=== PATIENT | male | born 1960 | race Caucasian/White ===

== ENCOUNTER 2023-03-19 12:15 | Emergency (ER) | payer OTHER ==
--- NOTE | 2023-03-19 12:44 | XRAY Report ---
PROCEDURE: Foot 3 View LT INDICATIONS: Trauma TECHNIQUE: 3 views of the foot were acquired. COMPARISON: None. FINDINGS: Bones: Diffuse osteopenia. No definite fracture identified. Normal alignment. Plantar calcaneal spur . Degenerative changes of the left foot and ankle. Soft tissues: No suspicious soft tissue calcifications or masses. Mild dorsal soft tissue swelling . IMPRESSION: Mild dorsal left foot soft tissue swelling. No definite fracture identified. Normal alignment. Diffus e osteopenia. Small plantar calcaneal enthesophyte. If there is persistent clinical concern for a radiographically occult fracture, recommend immobilizat ion and repeat imaging in 10 to 14 days. Reviewed by: Aadrsh Mcmanus MD on 03/19/2023 11:43 AM NICHOLAS Approved by: Adarsh Mcmanus MD on 03/19/2023 11:43 AM NICHOLAS Station ID: [id number]
--- NOTE | 2023-03-19 13:17 | ED Physician Documentation ---
PD HPI LOWER EXT INJURY - Stated complaint Stated Complaint: LT FOOT INJURY - Chief complaint Chief Complaint: Trauma Ext - History obtained from History obtained from: Patient - History of Present Illness PD HPI LOW EXT INJURY LOCATION: Left, Foot Type of injury: Blunt / blow Where injury occurred: Home Timing - onset: Today Timing - duration: Hours Timing - details: Abrupt onset, Still present Improved by: Rest, Ice, Immobilization Worsened by: Moving, Palpating Associated symptoms: Numbness (has peripheral neuropathy), Swelling. No: Weakness, Tingling Similar symptoms before: Has not had sx before Recently seen: Not recently seen - Additional information Additional information: 62-year-old male walking when he struck the dorsum of the left foot on a rock. He went about his business for some time feeling the pain and the pain became worse and worse. He is now able to only ambulate with crutches. He did this earlier this morning Review of Systems Constitutional: denies: Fever Nose: denies: Congestion Throat: denies: Sore throat Respiratory: denies: Cough GI: denies: Vomiting, Diarrhea PD PAST MEDICAL HISTORY - Present Medications Home Medications: Ambulatory Orders Medication Instructions Recorded Confirmed HYDROcod/ACETAM 5/325 [[place] 5/325] 1 - 2 tablet PO Q6H PRN #14 tablet 03/19/23 - Allergies Allergies/Adverse Reactions: Allergies Allergy/AdvReac Type Severity Reaction Status Date / Time No Known Drug Allergies Allergy Verified 03/19/23 12:25 PD ED PE NORMAL - Vitals Vital signs reviewed: Yes (hypertensive) - General General: Alert and oriented X 3, No acute distress, Well developed/nourished - HEENT HEENT: Atraumatic, PERRL, EOMI - Respiratory Respiratory: No respiratory distress - Derm Derm: Normal color, Warm and dry, No rash - Extremities Extremities: No deformity, Other (point tenderness to the dorsum of the left foot without crepitance or deformity. distal n/v intact. 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 No definite fracture identified. Normal alignment. Diffuse osteopenia. Small plantar calcaneal enthesophyte.), EMP independent interpretation of test PD Medical Decision Making - ED course Complexity details: reviewed results, re-evaluated patient, considered differential, d/w patient ED course: 62-year-old male with a contusion to the left foot has significant pain to the dorsum of the foot. He has a history of a peripheral neuropathy and he has come to the emergency department with increasing pain with ambulation after contusion. He was concerned about the possibility of a fracture. We did not find a fracture on x-ray examination of the foot. The patient is interested in pain management and we have provided a prescription for some pain medication for the patient. Departure - Departure Disposition: 01 Home, Self Care Clinical Impression: Contusion of left foot Qualifiers: Encounter type: initial encounter Qualified Code(s): S90.32XA - Contusion of left foot, initial encounter Condition: Stable Instructions: ED Sprain Foot Follow-Up: [facility] [Provider Group] Prescriptions: HYDROcod/ACETAM 5/325 [[place] 5/325] 1 - 2 tablet PO Q6H PRN #14 tablet PRN Reason: Pain Comments: Millerdavid today looks like you have contused your foot and there is no evidence of a fracture. Use the crutches as needed for ambulation and I have E scribed some pain medication to the [facility] in [place]. Expectation with treatment is resolution of symptoms within 10 to 14 days. Discharge Date/Time: 03/19/23 13:49
[2023-03-19 13:52] VITALS: BP 130/88
== END 2023-03-19 13:49 | disposition home or self-care (01) ==
LOC: ED 12:15
DX: S90.32XA Contusion of left foot, initial encounter (principal); W22.8XXA Striking against or struck by other objects, initial encounter; Y93.01 Activity, walking, marching and hiking
CPT/HCPCS: 99283; 99284

== ENCOUNTER 2023-11-23 13:36 | Outpatient (CLI) | payer OTHER ==
--- NOTE | 2023-11-23 14:46 | Sleep Patient Instructions ---
Sleep Center Visit Summary - Patient Visit Information Reason for Visit: Initial consultation - Patient Instructions Additional Instructions: You will continue with BiPAP therapy with pressure set at 18/10 cmH2O. A supply prescription will be updated with your DME. I have added an order for a new BIPAP, please call once you get your new machine to make appointment for compliance follow up. We encourage you to continue to try to lose weight. Please follow up with the sleep care office one month after obtaining new machine. - Clinic Information Contact: [facility] [address] [place] [address] [email or web address] T: [phone]
--- NOTE | 2023-11-23 14:51 | SLEEP CARE CONSULTATION ---
Information from patient questionnaire entered by Milagros Douglas. I have reviewed and concur with the information entered by Milagros Douglas. This document represents the service I personally performed and the decisions made by me, Trang Jeronimo ARNP. History of Present Illness Service Date and Time: 11/23/2023 1336 Reason for Visit: New patient, Previously diagnosed sleep apnea, sleep apnea on CPAP therapy Chief Complaint: reports: Other (NEW BIPAP THIS ONE IS OVER 5YRS OLD) Date of Onset: 10YRS Usual bedtime: 8PM-12AM Time it takes to fall asleep: 15-30MINS Snores at night: Yes Observed to quit breathing while asleep: Yes Sleeps alone due to snoring: No Number of times waking at night: 1 Reasons for waking at night: reports: Bathroom Toss, Turn, or Twitch while sleeping: No Recalls having dreams: Yes Usually gets out of bed at: 4-8 Feels refreshed in the morning: Yes Morning headache: No Sleepy or fatigued during the day: No Ever fallen asleep while driving: No Takes day naps: No Dreams during day naps: No Prior sleep studies: Yes Additional HPI information: ASHLI LOWERY was diagnosed to have severe, AHI 54.2 obstructive sleep apnea-hypopnea syndrome as seen in sleep study dated 10/16/2010 through [facility] and comes in today to establish care for BIPAP therapy. - Parasomnia Symptoms Ever been unable to move upon waking from sleep: No Walks in sleep: No Talks in sleep: Yes Ever felt weak in the knees when startled or emotional: No Bothered by creepy, crawly, restless sensations in legs: No Problems with memory or concentration: No CPAP Compliance Data - Data Reviewed with Patient Average duration of nightly device use: 7 hours 50 minutes Compliance rate %: 100 (90/90 days used) Current pressure setting (cmH2O): 18/10 with 2 pressure support Average residual AHI: 1.1 Central apnea: 0.2 Obstructive apnea: 0.5 Hypopnea: 0.3 Average large leak: 0 L/MIN Compliance data discussion: He has a ResMed Aircurve 10 last updated in 08/2016. He gets his supplies from [employer]. He uses a full face mask, ResMed Mirage Quattro, medium cushion. Subjective Patient concerns: reports: dry mouth, nose, throat (dry mouth, most mornings). denies: aerophagia, mask discomfort, air blowing in eyes, mask leak noise, condensation in mask/hose, nasal congestion, epistaxis Observed to snore while using device: No Current pressure setting perceived as: comfortable On therapy, patient: reports: sleeping better, awakening more refreshed, being more awake and alert during the day, more rested overall. denies: drowsiness while driving Initial [place] Sleepiness Scale score: 5 (10/25/23) Past Medical History Past Medical History: reports: Hypertension, Other (high cholesterol) Social History The patient's occupation is a [employer]. Patient is and lives in [place]. Have you smoked in the past 12 months: Yes Cigarettes per day (20/pack): 20 Years of smokin Smoking Pack Years: 12.0 Alcohol use: Yes Alcohol amount and frequency: 6 PACK BEER EVERY 6MONTHS Caffeine use: Yes Caffeine amount and frequency: 2 CUPS COFFEE QD Family History Family history of sleep disordered breathing: No Allergies and Home Medications Known drug allergies: No Drug allergies reviewed: Yes Home medication list reviewed: Yes Allergy and home medication list: Allergies No Known Drug Allergies Allergy (Verified 11/21/23 11:08) Medications: Atorvastatin 40 mg daily Aspirin 81 mg daily Micardis HCT 80 mg/12.5 mg daily Review of Systems Weight loss over past 5 years: 25 Cardiovascular: reports: high blood pressure Gastrointestinal: denies: heartburn Neurological: denies: headaches Psychiatric: denies: anxiety, depression Ear/Nose/Throat: reports: tonsillectomy, wisdom teeth removed Musculoskeletal: reports: joint pain, muscle pain or cramping Physical Exam Vital signs obtained and entered by: MILAGROS Haley MA Blood Pressure: 148/83 (LEFT ARM) Cuff size: long Heart Rate: 75 O2 Saturation: 97 Height: 5 ft 11 in Weight: 271 lb (clothed with jacket, shoes) Body Mass Index: 37.8 BMI Classification: Obese Neck circumference: 19 Heart: regular rate and rhythm Lungs: clear bilaterally Impression and Plan 1. Obstructive Sleep Apnea-Hypopnea Syndrome, moderate, with good treatment compliance and good apnea control. On BIPAP therapy, the patient has better sleep quality and is more rested overall. Patient has significant improvement of their sleep apnea and is satisfied with current CPAP therapy. He has been getting more dry throat in the last 6 months. His machine was last updated in 2016 and he is eligible for new BiPAP. The patients BiPAP is over 5 years old and of reasonable use. Thus, the CPAP will be updated. In addition, it is giving him an error message that the motor has exceeded its life. The new CPAPs also have a better humidity system which could assist control of patients dryness symptoms. A DWO prescription will be made. Compliance guidelines for new device and follow up discussed.Patient's apnea severity and rationale for treatment to reduce apnea, improve sleep quality and reduce cardiovascular and cerebrovascular events was reviewed. I also reviewed the benefit of consistent device use of BIPAP for hypertension. 2. Obesity, unspecified. Currently patients BMI is 37.8. He says he has lost about 25 pounds with cutting back on his carbs. Obesity increases the risk of apnea, BiPAP pressure requirements and overall health risks especially cardiovascular and diabetes. Thus patient is advised to continue to try to lose weight. * Continue BIPAP pressure at 18/10 cmH2O with 2 cmH2O pressure support * Update machine * Update supplies * Notify me if snoring with mask or feeling that the pressure is too much or too little * Attempt to lose weight * Call this office if any problems using BiPAP * Return for follow up one month after obtaining new device, or sooner if concerns arise Counseling Topics: Weight loss health impact Prescriptions: BiPAP, Device supplies Follow up with Sleep Care in: other (compliance follow up) Visit Type: In Office Time Spent with Patient (minutes): 30 Provider Statement: I spent 100% of the Face to Face Visit with the patient with greater than 50% spent counseling the patient and coordination of care.
[2023-11-23 15:07] VITALS: BP 148/83; O2SAT 97
== END 2023-11-23 13:37 | disposition home or self-care (01) ==
LOC: SC 13:36
PROVIDERS: ATTEND Nurse Practitioner Family
DX: G47.33 Obstructive sleep apnea (adult) (pediatric) (principal); E66.9 Obesity, unspecified; Z68.37 Body mass index [BMI] 37.0-37.9, adult
CPT/HCPCS: 99203; 99212

== ENCOUNTER 2024-03-14 08:42 | Outpatient (CLI) | payer OTHER ==
--- NOTE | 2024-03-14 09:09 | Sleep Patient Instructions ---
Sleep Center Visit Summary - Patient Visit Information Reason for Visit: First compliance with new BiPAP follow-up - Patient Instructions Additional Instructions: You were here for follow up of BIPAP therapy. You will be continued on BiPAP therapy with pressure at 18/10 cmH2O. You should follow up with sleep care in 12 months. You may contact us sooner for any questions or concerns. - Clinic Information Contact: [facility] [address] [place] [id number] [email or web address] T: [phone]
--- NOTE | 2024-03-14 09:11 | SLEEP CARE CONSULTATION ---
Information from patient questionnaire entered by Milagros Douglas. I have reviewed and concur with the information entered by Milagros Douglas. This document represents the service I personally performed and the decisions made by me, Trang Jeronimo ARNP. History of Present Illness Service Date and Time: 03/14/2024 0842 Previous diagnosis: Severe, Obstructive Sleep Apnea-Hypopnea Syndrome AHI: 54.2 Reason for follow up: first compliance after device update Equipment type: CPAP (RESMED AirCurve 11, s/u 12/27/23, NEED MACHINE) Equipment obtained from: Other ([employer], getting supplies) Mask style: Full face (Mirage Quattro) Backup mask available: Yes Last cushion change: few weeks Prior sleep studies: Yes Year and Where: 10/16/2010 [facility] additional information: ASHLI LOWERY was diagnosed to have severe, AHI 54.2, obstructive sleep apnea-hypopnea syndrome and returned today for CPAP therapy first compliance after updating device follow-up. Sleep Study - Results Prior sleep studies: Yes CPAP Compliance Data - Data Reviewed with Patient Average duration of nightly device use: 7 hours 34 minutes Compliance rate %: 77 (/30 days used initially; 100% in last 30 days) Current pressure setting (cmH2O): 18/10 with 2 pressure support Average residual AHI: 0.8 Central apnea: 0.2 Obstructive apnea: 0.4 Hypopnea: 0.2 Average large leak: 0.1 L/min Subjective Patient concerns: denies: aerophagia, mask discomfort, air blowing in eyes, mask leak noise, condensation in mask/hose, nasal congestion, dry mouth, nose, throat, epistaxis Observed to snore while using device: No Current pressure setting perceived as: comfortable On therapy, patient: reports: sleeping better, awakening more refreshed, being more awake and alert during the day, more rested overall. denies: drowsiness while driving Initial [place] Sleepiness Scale score: 5 (10/25/23) Current [place] Sleepiness Scale score: 6 (03/14/24) Allergies and Home Medications Known drug allergies: No Drug allergies reviewed: Yes Home medication list reviewed: Yes (no changes) Allergy and home medication list: Allergies No Known Drug Allergies Allergy Review of Systems Review of systems same as previous: Yes (NO CHANGE) Physical Exam Vital signs obtained and entered by: MILAGROS Haley MA Blood Pressure: 154/92 (RIGHT ARM) Cuff size: long Heart Rate: 73 O2 Saturation: 97 Height: 5 ft 11 in Weight: 265 lb 3.2 oz Body Mass Index: 37.0 BMI Classification: Obese Impression and Plan 1. Obstructive Sleep Apnea-Hypopnea Syndrome, severe, with good treatment compliance and good apnea control. On BiPAP therapy, the patient has better sleep quality and is more rested overall. He says his new BiPAP is working well with no problems. He is satisfied with current BiPAP pressure settings and has significant improvement of his sleep apnea. Patient's apnea severity and rationale for treatment to reduce apnea, improve sleep quality and reduce card iovascular and cerebrovascular events was reviewed. I also reviewed the benefit of consistent device use of BiPAP for hypertension. 2. Obesity, unspecified. Currently patients BMI is 37. Obesity increases the risk of apnea, BiPAP pressure requirements and overall health risks especially cardiovascular and diabetes. Thus patient is advised to lose weight. * Continue BiPAP pressure at 18/10 cmH2O with 2 cmH2O pressure support * Notify me if snoring with mask or feeling that the pressure is too much or too little * Attempt to lose weight * Call this office if any problems using BiPAP * Return for follow up in 12 months, or sooner if concerns arise Counseling Topics: Spare mask, Weight loss health impact Follow up with Sleep Care in: 1 year Visit Type: In Office Time Spent with Patient (minutes): 11 Provider Statement: I spent 100% of the Face to Face Visit with the patient with greater than 50% spent counseling the patient and coordination of care.
[2024-03-14 09:20] VITALS: BP 154/92; O2SAT 97
== END 2024-03-14 08:43 | disposition home or self-care (01) ==
LOC: SC 08:42
PROVIDERS: ATTEND Nurse Practitioner Family
DX: G47.33 Obstructive sleep apnea (adult) (pediatric) (principal); E66.9 Obesity, unspecified; Z68.37 Body mass index [BMI] 37.0-37.9, adult
CPT/HCPCS: 99212